=== PATIENT | female | born 1955 | race Caucasian/White ===

== ENCOUNTER → 2024-10-20 | Outpatient (CLI) | payer MEDICARE ==
[~2024-10-20] MED LIST: ESTR0.5T2 PO; METO25TA3 PO; MONT-46 PO; PROG100C11 PO; TRAM50TA4 PO
--- NOTE | 2024-10-20 15:33 | HMCIMG ---
CT PELVIS W/O CONTRAST REASON: Sacrococcygeal disorders, not elsewhere classified COMPARISON: Liver TECHNIQUE: Axial images are obtained from iliac crests to to the perineum and pelvic bones. FINDINGS: There are normal-appearing bones of the pelvis. SI joints appear unremarkable. Sacrum and coccyx appear unremarkable. There are no focal osseous lesions. Visualized bowel loops appear normal. Pelvic soft tissues are unremarkable. Anterior abdominal wall is intact. Muscles and subcutaneous soft tissues appear normal as well. IMPRESSION: 1. Negative CT pelvis with attention to the sacrum and coccyx.
--- NOTE | 2024-10-20 15:47 | HMCIMG ---
MR SPINAL CANAL, LUMBAR WO CON REASON: M48.061 Spinal stenosis, lumbar region without neurogenic claudication COMPARISON: None TECHNIQUE: Routine lumbar imaging protocol was performed. FINDINGS: There is marked interspace narrowing at L5-S1. There is mild interspace narrowing at L3-4, remaining interspaces are preserved. There is 16 degrees levoscoliosis epicentered at approximately L1-2. Alignment appears otherwise unremarkable. Axial images show moderate degenerative changes in the ligamentum flavum and facets. There is no evidence of disc herniation or focal spinal stenosis. Neural foramina appear preserved throughout with the exception of the L5-S1 foramen on the left. Exam appears otherwise unremarkable, there are no focal osseous lesions, surrounding soft tissues appear unremarkable. IMPRESSION: 1. Moderate lumbar degenerative changes without disc herniation or focal spinal stenosis. 2. 16 degrees levoscoliosis. 3. Moderate to marked narrowing of the L5-S1 foramen on the left, remaining neural foramina appear preserved.
== END | disposition home or self-care (01) ==
LOC: RAH 13:43
PROVIDERS: ATTEND Physical Medicine & Rehabilitation
DX: M47.26 Other spondylosis with radiculopathy, lumbar region (principal); M48.07 Spinal stenosis, lumbosacral region; M48.061 Spinal stenosis, lumbar region without neurogenic claudication; M41.86 Other forms of scoliosis, lumbar region; M53.3 Sacrococcygeal disorders, not elsewhere classified; Z98.890 Other specified postprocedural states
CPT/HCPCS: 72148; 72192